=== PATIENT | male | born 1990 | race African-American/Black ===

== ENCOUNTER 2024-10-29 14:44 | Emergency (ER) | payer SELFPAY ==
--- NOTE | ~2024-10-29 | CT_ITS ---
EXAMINATION: CT abdomen pelvis wo con DATE: 10/29/2024 16:00 INDICATION: Hematuria TECHNIQUE: Computed tomography (CT) of the abdomen and pelvis was performed without intravenous contr ast. Automated exposure control and iterative reconstruction technique were employed. The dose-length product was 188.28 mGy-cm. COMPARISON: None. FINDINGS: Lower thorax: Multiple calcified and noncalcified benign nodules, likely representing granulomas. Rig ht middle lobe scar. Liver: Normal. Biliary/Gallbladder: Gallbladder is normal. No bile duct dilation. Pancreas: No mass or duct dilation. Spleen: Normal. Adrenals:No mass. Kidneys: No suspicious mass, obstructing stone, or hydronephrosis. Punctate nonobstructing calcificat ion in the right midpole. GI tract: No small or large bowel dilation. Appendix not confidently visualized. Mesentery/Peritoneum: No ascites, mass, or free air. Retroperitoneum: No mass. Pelvis: Pelvic organs are within normal limits. Soft Tissues: Soft tissues and body wall unremarkable. Bones: No acute osseous finding. IMPRESSION: Ureters are difficult to trace given the lack of abdominal fat, however no calcifications detected in the expected pathways of the ureters. No acute abdominopelvic process detected. Reviewed, dictated and finalized at location K. IMPRESSION: Ureters are difficult to trace given the lack of abdominal fat, however no calc ifications detected in the expected pathways of the ureters. No acute abdominopelvic process detected.
[2024-10-29 15:08] VITALS: BP 132/68; PULSE 79; RESP 16; TEMP 36.8; O2SAT 98
[2024-10-29 16:00] LABS: Hematocrit 43.7 % (42.0-52.0); Hemoglobin 14.8 g/dL (14.0-18.0); Immature Granulocyte Percent A 0.1 % (0-0.5); Lymphocytes Absolute Auto 1.97 K/mm3 (0.9-3.2); Mean Corpuscular HGB Conc 33.9 g/dl (32-36); Mean Corpuscular Hemoglobin 28.1 pg (26-34); Mean Corpuscular Volume 82.9 fl (80-100); Nucleated Red Blood Cells Absolute Auto 0.000 K/mm3 (0.0-0.012); Nucleated Red Blood Cells Perc 0.0 % (0.0-0.2); Platelet Count Result 274 k/mm3 (150-375); Red Blood Count 5.27 M/mm3 (4.6-6.20); White Blood Count 7.5 K/mm3 (4.5-10.0)
[2024-10-29 16:10] LABS: Alanine Aminotransferase 23 U/L (6-50); Albumin Level 4.2 g/dL (3.5-5.1); Alkaline Phosphatase 70 U/L (38-126); Anion Gap 9 mmol/L (4-12); Aspartate Amino Transferase 27 U/L (17-59); Bilirubin,Total 0.3 mg/dL (0.2-1.3); Blood Urea Nitrogen 10 mg/dL (9-20); Calcium 9.1 mg/dL (8.4-10.2); Carbon Dioxide 25 mmol/L (22-30); Chloride 106 mmol/L (98-107); Estimated CRCL calculation 125 ml/min; Estimated Glomerular Filt Rate > 60; Glucose 72 mg/dL (65-110); Potassium 3.3 mmol/L (3.4-5.0); Sodium 140 mmol/L (137-145); Total Protein 7.4 g/dL (6.3-8.2)
[2024-10-29 16:12] LABS: INR 1.0; Prothrombin Time 13.3 Seconds (11.1-14.7)
[2024-10-29 16:13] LABS: Partial Thromboplastin Time 37.6 Seconds (22.3-36.8)
--- NOTE | 2024-10-29 16:22 | PC.NURSE ---
RN went to bedside to place urinary catheter. Pt reported that he was able to pee in the specimen cup. Urine is yellow, cloudy, foul smelling. Pt states he really does not want the urinary catheter at this time, asking if he really needs it and is requesting to put it off unless absolutely necessary. Pt denies any abdominal pain/pressure, states pain is only at the tip of urethra. Discussed with MD Jessica, states okay to hold off on catheter until results come back. Pt aware, UA sent to lab.
[2024-10-29 16:29] LABS: Add Urine Microscopic? YES; Appearance Urine Cloudy (Clear); Glucose Urine UA Negative (Negative); Leukocyte Esterase Ur 3+ LEU/UL (Negative); Nitrate Urine Negative (Negative); Non Pathogenic Casts 0-2; Specific Grav Ur 1.032 (1.001-1.035)
--- NOTE | 2024-10-29 17:10 | ED.GENADULT ---
HPI - General Adult General Chief complaint: Urogenital-Male Stated complaint: I woke up and my kala is bleeding Time Seen by Provider: 10/29/24 15:31 History of Present Illness HPI narrative: Patient 34-year-old gentleman presents emergency department with chief complaint of bleeding from his penis. Patient reports that he went to bed woke up and noticed that his penis was stuck to his boxers the patient reports there was blood everywhere reports no trauma patient reports that he has pain with urinating Related Data Allergies Allergy/AdvReac Type Severity Reaction Status Date / Time No Known Allergies Allergy Verified 10/29/24 15:48 Review of Systems Review of Systems: A 10 system review of systems was completed on the patient and is negative except for what is stated in the HPI. Nursing and ancillary documentation was reviewed. Exam Narrative: GENERAL: Well-appearing, well-nourished, and in no acute distress. HEAD: Normocephalic, atraumatic. EYES: PERRLA and EOMI. ENT: Nares clear, no rhinorrhea or epistaxis. Mucous membranes moist. NECK: Supple. CHEST: Clear to auscultation. No respiratory distress. HEART: Regular rate and rhythm. No murmur heard. Normal peripheral pulses. ABDOMEN: Soft, nontender, nondistended, normal active bowel sounds. : There is blood present at the urethral meatus EXTREMITIES: Normal range of motion. No edema. SKIN: Warm, dry, no rash. NEURO: No focal deficits. Alert and oriented x3. PSYCH: Normal mood and affect. Course Vital Signs Vital signs: Vital Signs Temperature 36.8 C 10/29/24 15:08 Pulse Rate 79 10/29/24 15:08 Respiratory Rate 16 10/29/24 15:08 Blood Pressure 132/68 10/29/24 15:08 Pulse Oximetry 98 10/29/24 15:08 Temperature 36.8 C 10/29/24 15:08 Pulse Rate 79 10/29/24 15:08 Respiratory Rate 16 10/29/24 15:08 Blood Pressure 132/68 10/29/24 15:08 Pulse Oximetry 98 10/29/24 15:08 Medical Decision Making [facility] Narrative Medical decision making narrative: Differential diagnosis includes ureteral trauma, pyelonephritis, kidney stone, Laboratory studies were obtained on the patient showed normal CBC normal hemoglobin electrolytes are within normal limits urinalysis showed 3+ leukocyte esterase greater than 100 rbc's 100 wbc's Chlamydia gonorrhea test were sent Patient will be given a dose Rocephin and started on doxycycline and Keflex CT scan showed no evidence of obstructing stone no evidence of foreign body through the urethra Patient was able to urinate Vital Signs Vital Signs: Vital Signs Temperature 36.8 C 10/29/24 15:08 Pulse Rate 79 10/29/24 15:08 Respiratory Rate 16 10/29/24 15:08 Blood Pressure 132/68 10/29/24 15:08 Pulse Oximetry 98 10/29/24 15:08 Temperature 36.8 C 10/29/24 15:08 Pulse Rate 79 10/29/24 15:08 Respiratory Rate 16 10/29/24 15:08 Blood Pressure 132/68 10/29/24 15:08 Pulse Oximetry 98 10/29/24 15:08 Lab Data 10/29/24 15:54 10/29/24 15:54 Labs: Lab Results 10/29/24 10/29/24 Range/Units 15:54 16:14 WBC 7.5 (4.5-10.0) K/mm3 RBC 5.27 (4.6-6.20) M/mm3 Hgb 14.8 (14.0-18.0) g/dL Hct 43.7 (42.0-52.0) % MCV 82.9 (80-100) fl MCH 28.1 (26-34) pg MCHC 33.9 (32-36) g/dl RDW 13.2 (11.5-14.5) % Plt Count 274 (150-375) k/mm3 MPV 9.0 (7.4-10.4) fl Immature Gran % (Auto) 0.1 (0-0.5) % Neut % (Auto) 60.7 (45.5-73.1) % Lymph % (Auto) 26.4 (18.3-44.2) % [place] % (Auto) 11.8 H (2.6-8.5) % Eos % (Auto) 0.7 (0-4.4) % Baso % (Auto) 0.3 (0.2-1.2) % Lymph # (Auto) 1.97 (0.9-3.2) K/mm3 [place] # (Auto) 0.9 H (0.1-0.6) K/mm3 Eos # (Auto) 0.1 (0-0.3) K/mm3 Baso # (Auto) 0.0 (0.0-0.1) K/mm3 Abs Immat Gran (auto) 0.01 (0.00-0.031) K/mm3 Absolute Neuts (auto) 4.5 (1.3-6.7) K/mm3 Absolute Nucleated RBC 0.000 (0.0-0.012) K/mm3 Nucleated RBC % 0.0 (0.0-0.2) % PT 13.3 (11.1-14.7) Seconds INR 1.0 APTT 37.6 H (22.3-36.8) Seconds Sodium 140 (137-145) mmol/L Potassium 3.3 L (3.4-5.0) mmol/L Chloride 106 (98-107) mmol/L Carbon Dioxide 25 (22-30) mmol/L Anion Gap 9 (4-12) mmol/L BUN 10 (9-20) mg/dL Creatinine 0.78 (0.7-1.3) mg/dL Estim Creat Clear Calc 125 ml/min Estimated GFR > 60 (59 - ) Glucose 72 (65-110) mg/dL Lactic Acid 1.1 (0.7-2.0) mmol/L Calcium 9.1 (8.4-10.2) mg/dL Total Bilirubin 0.3 (0.2-1.3) mg/dL AST 27 (17-59) U/L ALT 23 (6-50) U/L Alkaline Phosphatase 70 (38-126) U/L Total Protein 7.4 (6.3-8.2) g/dL Albumin 4.2 (3.5-5.1) g/dL Urine Color Yellow (Yellow) Urine Appearance Cloudy H (Clear) Urine pH 6.0 (5.0-9.0) Ur Specific [place] 1.032 (1.001-1.035) Urine Protein 1+ H (Negative) mg/dL Urine Glucose (UA) Negative (Negative) mg/dL Urine Ketones Trace H (Negative) mg/dL Ur Blood (Man) 3+ H (Negative) Urine Nitrate Negative (Negative) Urine Bilirubin Negative (Negative) Urine Urobilinogen 1.0 (<2.0) mg/dL Leukocyte Esterase Rfl 3+ H (Negative) JAMES/UL Urine RBC >100 H (0-2) /hpf Urine WBC >100 H (0-3) /hpf Ur Squamous Epith Cells None seen (Few) /hpf Urine Bacteria None seen /hpf Urine Casts 0-2 C. trachomatis (PCR) Pending N. gonorrhoeae (PCR) Pending Discharge Plan Discharge Clinical Impression: Urinary tract infection, Urethritis, Hematuria Patient Disposition: Home Condition: Stable Instructions: Antibiotic Form, Urinary Tract Infection in Men (ED), Hematuria (ED), Dysuria (ED) Patient Language: [place] Prescriptions: New doxycycline hyclate 100 mg tablet 100 mg PO BID Qty: 14 0RF cephalexin 500 mg capsule 500 mg PO TID 7 Days Qty: 21 0RF Follow-up/Referrals: PHYSICIAN,PAINTER SET [Primary Care Provider] - Wilbert Quintanilla MD [Physician] - Donovan Ramirez MD [Physician] - Time of Disposition: 18:14
[2024-10-29] MEDS: cefTRIAXone 1 GM VIAL IM (18:22)
[2024-10-29 18:57] VITALS: BP 140/88; PULSE 77; RESP 16; O2SAT 99
== END 2024-10-29 19:03 | disposition home or self-care (01) ==
PROVIDERS: Emergency Provider Emergency Medicine
DX: N39.0 Urinary tract infection, site not specified (principal); R31.9 Hematuria, unspecified
CPT/HCPCS: 36415; 74176; 80053; 81001; 83605; 85025; 85610; 85730; 87086; 87491; 87591; 96372; 99284; J0696; J2003